=== PATIENT | female | born 1990 | race African-American/Black ===

== ENCOUNTER 2016-04-13 09:19 | Emergency (ER) | payer MEDICAID ==
[~2016-04-13] VITALS: Ht 160 cm; Wt 90.7 kg
[~2016-04-13 09:19] MED LIST: NORPTMEDS CO
[2016-04-13 09:36] VITALS: BP 110/72
[2016-04-13] MEDS ORDERED: cefTRIAXone SOD 1,000 MG VL IM ONE (10:15)
== END 2016-04-13 13:31 | disposition home or self-care (01) ==
LOC: EDBD 09:19 → ER 09:23
DX: J03.90 Acute tonsillitis, unspecified (principal)
CPT/HCPCS: 96372; 99283; J0696

== ENCOUNTER 2017-03-28 23:51 | Emergency (ER) | payer MEDICAID ==
[~2017-03-28] VITALS: Ht 162.6 cm; Wt 99.8 kg
[2017-03-29 00:12] VITALS: BP 135/88
[2017-03-29 00:29] LABS: Eosinophils # (auto) 0.1 uL; Eosinophils % (auto) 0.7 % (0.0-7.0); Hemoglobin 12.6 g/dL (12.2-16.2); Mean Corpuscular Volume 82.5 fL (80.0-100.0); Monocytes % (auto) 10.9 % (0.0-12.0); Nucleated Red Blood Cells % 0.1 %
[2017-03-29 00:30] LABS: Basophils # (auto) 0.1 uL; Basophils % (auto) 0.4 % (0.0-2.0); Hematocrit 38.6 % (36.0-46.0); Lymphocytes # (auto) 8.5 uL; Lymphocytes % (auto) 47.3 % (10.0-50.0); Mean Corpuscular Hgb Conc. 32.7 g/dL (32.0-36.0); Neutrophils # (auto) 7.4 uL; Neutrophils % (auto) 40.7 % (37.0-80.0); Platelet Count (auto) 323 10^3/uL (140-450); Red Blood Cells 4.67 10^6/uL (4.0-5.20); Red Cell Distribution Width 13.7 % (11.8-14.3); White Blood Cell 18.1 10^3/uL (4.4-10.8)
[2017-03-29 00:46] LABS: Alanine Aminotransferase 19 U/L (13-56); Albumin 3.4 g/dL (3.4-5.0); Anion Gap 8 (5-15); Aspartate Aminotransferase 11 U/L (15-37); BUN/Creatinine Ratio 9.4; Blood Alcohol < 3.0 mg/dL (0-5); Blood Urea Nitrogen 8 mg/dL (7-18); Calcium 8.3 mg/dL (8.5-10.1); Carbon Dioxide 23 mmol/L (21-32); Chloride 106 mmol/L (98-107); GFR African American 105 mL/min; GFR Non-African American 87 mL/min; Glucose 136 mg/dL (74-106); Magnesium 2.3 mg/dL (1.6-2.6); Sodium 137 mmol/L (136-145)
[2017-03-29 00:48] LABS: Alkaline Phosphatase 91 U/L (45-117); Bilirubin, Total 0.1 mg/dL (0.2-1.0); Total Protein 7.9 g/dL (6.4-8.2)
[2017-03-29 00:51] LABS: Potassium 2.7 mmol/L (3.5-5.1)
== END 2017-03-29 02:45 | disposition left against medical advice (07) ==
LOC: ER 23:51
DX: R11.2 Nausea with vomiting, unspecified (principal); Z53.21 Procedure and treatment not carried out due to patient leaving prior to being seen by health care provider
CPT/HCPCS: 36415; 80053; 80320; 83735; 84702; 85025

== ENCOUNTER 2019-02-21 08:55 | Emergency (ER) | payer MEDICAID ==
[~2019-02-21] VITALS: Ht 162.6 cm; Wt 108.9 kg
[2019-02-21 09:39] LABS: Urine Bacteria FEW /hpf (None Seen); Urine Blood Negative /uL (Negative); Urine Specific Gravity 1.023 (1.001-1.035); Urine WBC 1 /hpf (0 - 5)
[2019-02-21 09:40] LABS: Basophils # (auto) 0.1 uL; Basophils % (auto) 0.9 % (0.0-2.0); Eosinophils # (auto) 0.1 uL; Eosinophils % (auto) 0.8 % (0.0-7.0); Hematocrit 40.1 % (36.0-46.0); Hemoglobin 13.4 g/dL (12.2-16.2); Lymphocytes # (auto) 3.7 uL; Lymphocytes % (auto) 29.2 % (10.0-50.0); Mean Corpuscular Hemoglobin 27.4 pg (28.0-32.0); Mean Corpuscular Hgb Conc. 33.3 g/dL (32.0-36.0); Mean Corpuscular Volume 82.4 fL (80.0-100.0); Monocytes # (auto) 1.2 uL; Monocytes % (auto) 9.6 % (0.0-12.0); Neutrophils # (auto) 7.5 uL; Neutrophils % (auto) 59.5 % (37.0-80.0); Nucleated Red Blood Cells % 0.1 %; Platelet Count (auto) 281 10^3/uL (140-450); Red Blood Cells 4.87 10^6/uL (4.0-5.20); Red Cell Distribution Width 13.4 % (11.8-14.3); White Blood Cell 12.6 10^3/uL (4.4-10.8)
[2019-02-21 09:54] LABS: Albumin 3.4 g/dL (3.4-5.0); Calcium 8.1 mg/dL (8.5-10.1); Potassium 4.3 mmol/L (3.5-5.1)
[2019-02-21 09:59] LABS: BUN/Creatinine Ratio 13.8; Bilirubin, Total 0.2 mg/dL (0.2-1.0)
[2019-02-21] MEDS ORDERED: PANTOPRAZOLE 40 MG/10 ML VIAL INJ IV ONE (10:15)
[2019-02-21 10:39] VITALS: BP 112/72
== END 2019-02-21 11:33 | disposition home or self-care (01) ==
LOC: ER 08:55
DX: K29.70 Gastritis, unspecified, without bleeding (principal); D72.829 Elevated white blood cell count, unspecified
CPT/HCPCS: 36415; 74176; 80053; 81001; 81025; 85025; 96374; 99284; C9113

== ENCOUNTER 2019-04-23 14:56 | Emergency (ER) | payer MEDICAID ==
[~2019-04-23] VITALS: Ht 162.6 cm; Wt 116.1 kg
[2019-04-23 15:27] LABS: Basophils # (auto) 0.1 uL; Basophils % (auto) 0.6 % (0.0-2.0); Eosinophils # (auto) 0 uL; Eosinophils % (auto) 0.1 % (0.0-7.0); Hematocrit 43.6 % (36.0-46.0); Hemoglobin 14.5 g/dL (12.2-16.2); Lymphocytes # (auto) 2.1 uL; Lymphocytes % (auto) 17.1 % (10.0-50.0); Mean Corpuscular Hemoglobin 27.5 pg (28.0-32.0); Mean Corpuscular Hgb Conc. 33.4 g/dL (32.0-36.0); Mean Corpuscular Volume 82.4 fL (80.0-100.0); Monocytes # (auto) 0.8 uL; Monocytes % (auto) 6.2 % (0.0-12.0); Neutrophils # (auto) 9.4 uL; Platelet Count (auto) 311 10^3/uL (140-450); Red Blood Cells 5.29 10^6/uL (4.0-5.20); Red Cell Distribution Width 13.8 % (11.8-14.3); White Blood Cell 12.3 10^3/uL (4.4-10.8)
[2019-04-23] MEDS ORDERED: SODIUM CHLORIDE 0.9% 1,000 ML IVB ONE (15:28)
[2019-04-23 15:45] LABS: Salicylate < 1.7 mg/dL (2.8-20.0)
[2019-04-23] MEDS ORDERED: ONDANSETRON HCL 4 MG/2 ML VIAL IV ONE (15:45)
[2019-04-23 15:46] LABS: Alanine Aminotransferase 23 U/L (13-56); Anion Gap 7 (5-15); Aspartate Aminotransferase 16 U/L (15-37); BUN/Creatinine Ratio 10.8; Blood Alcohol < 3.0 mg/dL (0-5); Blood Urea Nitrogen 10 mg/dL (7-18); Carbon Dioxide 26 mmol/L (21-32); Chloride 103 mmol/L (98-107); GFR African American 93 mL/min; GFR Non-African American 77 mL/min; Glucose 104 mg/dL (74-106); Magnesium 2.3 mg/dL (1.6-2.6); Potassium 3.8 mmol/L (3.5-5.1); Sodium 136 mmol/L (136-145)
[2019-04-23] MEDS ORDERED: ONDANSETRON HCL 4 MG/2 ML VIAL ONE (15:47)
[2019-04-23 15:49] LABS: Alkaline Phosphatase 99 U/L (45-117); Bilirubin, Total 0.5 mg/dL (0.2-1.0); Total Protein 8.6 g/dL (6.4-8.2)
[2019-04-23 16:02] LABS: INR 1.02 (0.9-1.15); Partial Thromboplastin Time 25.9 sec (23.64-32.05)
[2019-04-23 16:05] LABS: Acetaminophen < 2.0 ug/mL (10-30)
[2019-04-23 16:20] LABS: Urine Bacteria NONE SEEN /hpf (None Seen); Urine Blood Negative /uL (Negative); Urine Mucus FEW (None Seen); Urine Specific Gravity 1.013 (1.001-1.035); Urine WBC 4 /hpf (0 - 5)
[2019-04-23 16:27] LABS: Alcohol, Urine < 3.0 mg/dL (0-5); Amphetamine Screen, Urine NEGATIVE (NEGATIVE); Barbiturate Scree,Urine NEGATIVE (NEGATIVE); Benzodiazephine Screen, Urine NEGATIVE (NEGATIVE); Cannabinoid Screen, Urine NEGATIVE (NEGATIVE); Cocaine Screen, Urine NEGATIVE (NEGATIVE); Opiate Scree,Urine NEGATIVE (NEGATIVE); Phencyclidine Screen, Urine NEGATIVE (NEGATIVE)
[2019-04-23 19:00] VITALS: BP 107/58
== END 2019-04-23 21:24 | disposition home or self-care (01) ==
LOC: ER 14:56
DX: T39.392A Poisoning by other nonsteroidal anti-inflammatory drugs [NSAID], intentional self-harm, initial encounter (principal); T42.4X2A Poisoning by benzodiazepines, intentional self-harm, initial encounter; T46.6X2A Poisoning by antihyperlipidemic and antiarteriosclerotic drugs, intentional self-harm, initial encounter; F41.9 Anxiety disorder, unspecified; F32.9 Major depressive disorder, single episode, unspecified; Y92.9 Unspecified place or not applicable
CPT/HCPCS: 36415; 71046; 80053; 80307; 80320; 80329; 81001; 83735; 84702; 85025; 85610; 85730; 93005; 96374; 99284; J2405; J7030

== ENCOUNTER 2019-08-19 12:17 | Emergency (ER) | payer MEDICAID ==
[~2019-08-19] VITALS: Ht 162.6 cm; Wt 121.1 kg
[2019-08-19] MEDS ORDERED: KETOROLAC TROMETH 60MG/2ML VIAL IM ONE (12:45)
[2019-08-19 13:13] LABS: Basophils # (auto) 0 10 ^3/uL (0-0.2); Basophils % (auto) 0.4 % (0.0-2.0); Eosinophils # (auto) 0.1 10 ^3/uL (0-0.8); Monocytes # (auto) 0.9 10 ^3/uL (0-1.3); Nucleated Red Blood Cells % 0.1 %
[2019-08-19 13:15] LABS: Eosinophils % (auto) 0.7 % (0.0-7.0); Hematocrit 40.2 % (36.0-46.0); Hemoglobin 13.3 g/dL (12.2-16.2); Lymphocytes # (auto) 3.5 10 ^3/uL (0.4-5.4); Lymphocytes % (auto) 33.9 % (10.0-50.0); Mean Corpuscular Hemoglobin 27.1 pg (28.0-32.0); Mean Corpuscular Volume 82.3 fL (80.0-100.0); Monocytes % (auto) 8.3 % (0.0-12.0); Neutrophils # (auto) 5.9 10 ^3/uL (1.6-8.6); Neutrophils % (auto) 56.7 % (37.0-80.0); Platelet Count (auto) 312 10^3/uL (140-450); Red Blood Cells 4.89 10^6/uL (4.0-5.20); Red Cell Distribution Width 13.6 % (11.8-14.3); White Blood Cell 10.4 10^3/uL (4.4-10.8)
[2019-08-19 13:29] LABS: Alanine Aminotransferase 20 U/L (13-56); Albumin 3.5 g/dL (3.4-5.0); Anion Gap 7 (5-15); Blood Urea Nitrogen 10 mg/dL (7-18); Calcium 8.8 mg/dL (8.5-10.1); Carbon Dioxide 25 mmol/L (21-32); Chloride 105 mmol/L (98-107); Glucose 91 mg/dL (74-106); Potassium 3.9 mmol/L (3.5-5.1); Sodium 137 mmol/L (136-145)
[2019-08-19 13:33] LABS: Alkaline Phosphatase 100 U/L (45-117); Aspartate Aminotransferase 13 U/L (15-37); BUN/Creatinine Ratio 14.9; Bilirubin, Total 0.3 mg/dL (0.2-1.0); GFR African American 136 mL/min; GFR Non-African American 112 mL/min; Total Protein 7.9 g/dL (6.4-8.2)
[2019-08-19 14:32] VITALS: BP 110/67
== END 2019-08-19 14:38 | disposition home or self-care (01) ==
LOC: ER 12:17
DX: R07.89 Other chest pain (principal); M94.0 Chondrocostal junction syndrome [Tietze]
CPT/HCPCS: 36415; 71046; 80053; 84484; 85025; 85379; 93005

== ENCOUNTER 2020-01-01 09:42 | Emergency (ER) | payer MEDICAID ==
[~2020-01-01] VITALS: Ht 162.6 cm; Wt 115.7 kg
[2020-01-01 09:54] VITALS: BP 145/77
== END 2020-01-01 10:36 | disposition home or self-care (01) ==
LOC: ER 09:42
DX: N94.6 Dysmenorrhea, unspecified (principal)

== ENCOUNTER 2020-11-26 17:31 | Emergency (ER) | payer MEDICAID ==
[~2020-11-26] VITALS: Ht 162.6 cm; Wt 122.5 kg
[2020-11-26 18:39] LABS: Eosinophils # (auto) 0.1 10 ^3/uL (0-0.8); Eosinophils % (auto) 0.6 % (0.0-7.0); Hemoglobin 12.8 g/dL (12.2-16.2)
[2020-11-26 18:42] LABS: Basophils # (auto) 0 10 ^3/uL (0-0.2); Basophils % (auto) 0.4 % (0.0-2.0); Hematocrit 38.5 % (36.0-46.0); Lymphocytes # (auto) 3.5 10 ^3/uL (0.4-5.4); Mean Corpuscular Hemoglobin 27.1 pg (28.0-32.0); Mean Corpuscular Hgb Conc. 33.2 g/dL (32.0-36.0); Mean Corpuscular Volume 81.6 fL (80.0-100.0); Monocytes # (auto) 0.9 10 ^3/uL (0-1.3); Monocytes % (auto) 8.2 % (0.0-12.0); Neutrophils # (auto) 6.5 10 ^3/uL (1.6-8.6); Neutrophils % (auto) 58.8 % (37.0-80.0); Nucleated Red Blood Cells % 0.1 %; Red Blood Cells 4.71 10^6/uL (4.0-5.20); Red Cell Distribution Width 13.6 % (11.8-14.3)
[2020-11-26 18:45] LABS: Albumin 3.4 g/dL (3.4-5.0); BUN/Creatinine Ratio 13.3; Calcium 8.8 mg/dL (8.5-10.1)
[2020-11-26 18:47] LABS: Bilirubin, Total 0.4 mg/dL (0.2-1.0); Total Protein 7.8 g/dL (6.4-8.2)
[2020-11-26 18:54] LABS: Urine Bacteria NONE SEEN /hpf (None Seen); Urine Blood 3+ /uL (Negative); Urine Mucus FEW (None Seen); Urine Specific Gravity 1.028 (1.001-1.035); Urine WBC 3 /hpf (0 - 5)
[2020-11-26 20:20] VITALS: BP 147/94
== END 2020-11-26 20:52 | disposition home or self-care (01) ==
LOC: ER 17:32
DX: N93.9 Abnormal uterine and vaginal bleeding, unspecified (principal)
CPT/HCPCS: 36415; 80053; 81001; 84702; 85025

== ENCOUNTER 2021-01-31 08:53 | Emergency (ER) | payer MEDICAID ==
[~2021-01-31] VITALS: Ht 162.6 cm; Wt 117.9 kg
[2021-01-31 09:45] LABS: Basophils # (auto) 0.1 10 ^3/uL (0-0.2); Basophils % (auto) 1.4 % (0.0-2.0); Eosinophils # (auto) 0.1 10 ^3/uL (0-0.8); Hemoglobin 13.1 g/dL (12.2-16.2); Lymphocytes % (auto) 29.9 % (10.0-50.0); Mean Corpuscular Hgb Conc. 32.7 g/dL (32.0-36.0); Mean Corpuscular Volume 82.6 fL (80.0-100.0); Monocytes # (auto) 0.8 10 ^3/uL (0-1.3); Monocytes % (auto) 8.4 % (0.0-12.0); Neutrophils # (auto) 5.9 10 ^3/uL (1.6-8.6); Neutrophils % (auto) 59.3 % (37.0-80.0); Red Blood Cells 4.85 10^6/uL (4.0-5.20); Red Cell Distribution Width 14.4 % (11.8-14.3)
[2021-01-31 10:01] LABS: Albumin 3.4 g/dL (3.4-5.0); Calcium 8.8 mg/dL (8.5-10.1)
[2021-01-31 10:03] LABS: BUN/Creatinine Ratio 8.6; Bilirubin, Total 0.2 mg/dL (0.2-1.0); Total Protein 7.2 g/dL (6.4-8.2)
[2021-01-31 10:46] LABS: Urine WBC None Seen /hpf (0 - 5)
[2021-01-31 11:21] VITALS: BP 110/68
[2021-01-31 11:21] LABS: Amphetamine Screen, Urine NEGATIVE (NEGATIVE); Barbiturate Scree,Urine NEGATIVE (NEGATIVE); Benzodiazephine Screen, Urine NEGATIVE (NEGATIVE); Cannabinoid Screen, Urine NEGATIVE (NEGATIVE); Cocaine Screen, Urine NEGATIVE (NEGATIVE); Opiate Scree,Urine NEGATIVE (NEGATIVE); Phencyclidine Screen, Urine NEGATIVE (NEGATIVE); Urine Bacteria FEW /hpf (None Seen); Urine Blood Negative /uL (Negative); Urine Specific Gravity 1.007 (1.001-1.035)
[2021-02-01 06:07] LABS: RPR Non Reactive (Non Reactive)
== END 2021-01-31 12:29 | disposition home or self-care (01) ==
LOC: ER 08:53
DX: O34.81 Maternal care for other abnormalities of pelvic organs, first trimester (principal); N83.202 Unspecified ovarian cyst, left side; Z3A.00 Weeks of gestation of pregnancy not specified
CPT/HCPCS: 36415; 76801; 76817; 80053; 80307; 81001; 81025; 84702; 85025; 86592

== ENCOUNTER 2021-02-04 20:05 | Emergency (ER) | payer MEDICAID ==
[~2021-02-04] VITALS: Ht 162.6 cm; Wt 120.2 kg
[2021-02-04 20:08] VITALS: BP 125/72
[2021-02-04 23:30] LABS: Albumin 3.2 g/dL (3.4-5.0); Calcium 8.8 mg/dL (8.5-10.1); Potassium 4.1 mmol/L (3.5-5.1)
[2021-02-04 23:34] LABS: Basophils # (auto) 0.1 10 ^3/uL (0-0.2); Basophils % (auto) 1.2 % (0.0-2.0); Eosinophils # (auto) 0.1 10 ^3/uL (0-0.8); Eosinophils % (auto) 1.1 % (0.0-7.0); Hematocrit 39.9 % (36.0-46.0); Hemoglobin 13.1 g/dL (12.2-16.2); Lymphocytes # (auto) 4.1 10 ^3/uL (0.4-5.4); Lymphocytes % (auto) 34.3 % (10.0-50.0); Mean Corpuscular Hemoglobin 27.2 pg (28.0-32.0); Mean Corpuscular Hgb Conc. 32.8 g/dL (32.0-36.0); Mean Corpuscular Volume 82.9 fL (80.0-100.0); Monocytes # (auto) 1.2 10 ^3/uL (0-1.3); Monocytes % (auto) 9.8 % (0.0-12.0); Neutrophils # (auto) 6.4 10 ^3/uL (1.6-8.6); Neutrophils % (auto) 53.6 % (37.0-80.0); Red Blood Cells 4.81 10^6/uL (4.0-5.20); Red Cell Distribution Width 14.3 % (11.8-14.3)
[2021-02-04 23:35] LABS: BUN/Creatinine Ratio 17.7; Bilirubin, Total 0.2 mg/dL (0.2-1.0); Total Protein 7.6 g/dL (6.4-8.2)
[2021-02-04 23:44] LABS: INR 0.94 (0.9-1.15)
== END 2021-02-05 00:40 | disposition left against medical advice (07) ==
LOC: ER 20:06
DX: O20.0 Threatened abortion (principal); Z3A.01 Less than 8 weeks gestation of pregnancy
CPT/HCPCS: 36415; 80053; 84702; 85025; 85610

== ENCOUNTER 2021-05-21 20:32 | Observation (INO) | payer MEDICAID ==
[~2021-05-21] VITALS: Ht 162.6 cm; Wt 127.0 kg
[2021-05-21 20:33] VITALS: BP 144/70
[2021-05-21] MEDS ORDERED: SODIUM CHLORIDE 0.9% 1,000 ML IV ONE (21:00)
[2021-05-21] MEDS ORDERED: MAGNESIUM SULFATE 1GM/100ML 100 ML IV SCH (21:00)
[2021-05-21] MEDS ORDERED: SODIUM CHLORIDE 0.9% 500 ML IV ONE (21:00)
[2021-05-21 21:19] LABS: Urine Bacteria NONE SEEN /hpf (None Seen); Urine Blood Negative /uL (Negative); Urine Specific Gravity 1.019 (1.001-1.035); Urine WBC 1 /hpf (0 - 5)
[2021-05-21] MEDS ORDERED: ONDANSETRON HCL 4 MG/2 ML VIAL IV PRN (22:00)
[2021-05-21] MEDS ORDERED: LACTATED RINGER'S 1,000 ML IV ONE ×2 (22:00)
[2021-05-21 22:37] LABS: Alcohol, Urine < 3.0 mg/dL (0-10); Amphetamine Screen, Urine NEGATIVE (NEGATIVE); Barbiturate Scree,Urine NEGATIVE (NEGATIVE); Benzodiazephine Screen, Urine NEGATIVE (NEGATIVE); Cannabinoid Screen, Urine NEGATIVE (NEGATIVE); Cocaine Screen, Urine NEGATIVE (NEGATIVE); Opiate Scree,Urine NEGATIVE (NEGATIVE); Phencyclidine Screen, Urine NEGATIVE (NEGATIVE)
[2021-05-21] MEDS ORDERED: PREN-96 PO (23:36)
== END 2021-05-22 00:23 | disposition home or self-care (01) ==
LOC: ER 20:33 → LDRP 21:15
PROVIDERS: ADMIT Obstetrics & Gynecology; ATTEND Obstetrics & Gynecology
DX: O21.2 Late vomiting of pregnancy (principal); Z20.822 Contact with and (suspected) exposure to COVID-19; O26.892 Other specified pregnancy related conditions, second trimester; R10.9 Unspecified abdominal pain; R42 Dizziness and giddiness; E86.0 Dehydration; N89.8 Other specified noninflammatory disorders of vagina; Z3A.22 22 weeks gestation of pregnancy; Z79.899 Other long term (current) drug therapy
CPT/HCPCS: 36415; 59025; 80307; 81001; 87086; 87426; 93005; 96361; 96374; 99284; G0378; J2405; J3475; 96360

== ENCOUNTER 2021-06-16 15:47 | Observation (INO) | payer MEDICAID ==
[~2021-06-16 15:47] MED LIST changes: +PREN-96 PO
== END 2021-06-16 17:06 | disposition home or self-care (01) ==
LOC: LDRP 15:47
PROVIDERS: ADMIT Obstetrics & Gynecology; ATTEND Obstetrics & Gynecology
DX: O26.892 Other specified pregnancy related conditions, second trimester (principal); R10.2 Pelvic and perineal pain; Z3A.25 25 weeks gestation of pregnancy
CPT/HCPCS: 59025; 81002; 94760; G0378

== ENCOUNTER 2021-09-05 08:50 | Observation (INO) | payer MEDICAID ==
[~2021-09-05] VITALS: Ht 162.6 cm; Wt 135.2 kg
[2021-09-05] MEDS ORDERED: ASPI-543 PO (09:20)
[2021-09-05 11:07] LABS: Urine Bacteria NONE SEEN /hpf (None Seen); Urine Blood Negative /uL (Negative); Urine Specific Gravity 1.017 (1.001-1.035); Urine WBC <1 /hpf (0 - 5)
== END 2021-09-05 14:30 | disposition home or self-care (01) ==
LOC: UNDOADMOB 08:50 → LDRP 08:50 → UNDODISOB 14:30
PROVIDERS: ADMIT Obstetrics & Gynecology Obstetrics; ATTEND Obstetrics & Gynecology Obstetrics
DX: O62.9 Abnormality of forces of labor, unspecified (principal); O26.893 Other specified pregnancy related conditions, third trimester; I44.0 Atrioventricular block, first degree; E86.0 Dehydration; O23.43 Unspecified infection of urinary tract in pregnancy, third trimester; Z3A.37 37 weeks gestation of pregnancy
CPT/HCPCS: 59025; 76818; 81001; 81002; 82948; 82962; 87210; 94760; G0378

== ENCOUNTER 2021-09-09 09:45 | Observation (INO) | payer OTHER ==
[~2021-09-09 09:45] MED LIST changes: +ASPI-543 PO
== END 2021-09-09 11:14 | disposition home or self-care (01) ==
LOC: UNDOADMOB 09:45 → LDRP 09:45
PROVIDERS: ADMIT Obstetrics & Gynecology; ATTEND Obstetrics & Gynecology
DX: O36.8130 Decreased fetal movements, third trimester, not applicable or unspecified (principal); O12.03 Gestational edema, third trimester; Z3A.37 37 weeks gestation of pregnancy
CPT/HCPCS: 59025; 81002; 94760; G0378

== ENCOUNTER 2021-09-20 20:15 | Emergency (ER) | payer MEDICAID, OTHER ==
[~2021-09-20] VITALS: Ht 162.6 cm; Wt 127.0 kg
[~2021-09-20 20:15] MED LIST changes: -NORPTMEDS CO
[2021-09-20 20:42] VITALS: BP 126/76
[2021-09-20] MEDS ORDERED: SODIUM CHLORIDE 0.9% 1,000 ML IV ONE (21:15)
[2021-09-20] MEDS ORDERED: MORPHINE SULFATE 4 MG/ML SYR/VIAL IV ONE (21:15)
[2021-09-20] MEDS ORDERED: ONDANSETRON HCL 4 MG/2 ML VIAL IV ONE (21:15)
[2021-09-20 22:14] LABS: Basophils # (auto) 0.1 10 ^3/uL (0-0.2); Basophils % (auto) 0.5 % (0.0-2.0); Eosinophils # (auto) 0.1 10 ^3/uL (0-0.8); Eosinophils % (auto) 1.2 % (0.0-7.0); Hematocrit 37.7 % (36.0-46.0); Hemoglobin 11.9 g/dL (12.2-16.2); Lymphocytes # (auto) 2.6 10 ^3/uL (0.4-5.4); Mean Corpuscular Hgb Conc. 31.7 g/dL (32.0-36.0); Monocytes % (auto) 9.2 % (0.0-12.0); Neutrophils # (auto) 7.4 10 ^3/uL (1.6-8.6); Neutrophils % (auto) 66.1 % (37.0-80.0); Red Blood Cells 4.59 10^6/uL (4.0-5.20); Red Cell Distribution Width 15.2 % (11.8-14.3); White Blood Cell 11.2 10^3/uL (4.4-10.8)
[2021-09-20 22:35] LABS: Albumin 2.9 g/dL (3.4-5.0); BUN/Creatinine Ratio 10.6; Calcium 8.8 mg/dL (8.5-10.1); Potassium 3.8 mmol/L (3.5-5.1)
[2021-09-20 22:37] LABS: Bilirubin, Total 0.3 mg/dL (0.2-1.0); Total Protein 6.8 g/dL (6.4-8.2)
== END 2021-09-21 01:19 | disposition left against medical advice (07) ==
LOC: ER 20:15
DX: R10.32 Left lower quadrant pain (principal); Z88.8 Allergy status to other drugs, medicaments and biological substances
CPT/HCPCS: 36415; 80053; 84702; 85025

== ENCOUNTER 2023-11-03 15:59 | Emergency (ER) | payer BC, MEDICAID ==
[~2023-11-03] VITALS: Ht 162.6 cm; Wt 113.6 kg
[2023-11-03 17:09] LABS: Basophils # (auto) 0.1 10 ^3/uL (0-0.2); Basophils % (auto) 0.6 % (0.0-2.0); Eosinophils # (auto) 0.2 10 ^3/uL (0-0.8); Hematocrit 42.9 % (36.0-46.0); Hemoglobin 13.9 g/dL (12.2-16.2); Monocytes # (auto) 1.1 10 ^3/uL (0-1.3)
[2023-11-03 17:11] LABS: Eosinophils % (auto) 1.1 % (0.0-7.0); Lymphocytes # (auto) 2.6 10 ^3/uL (0.4-5.4); Lymphocytes % (auto) 16.7 % (10.0-50.0); Mean Corpuscular Hemoglobin 26.9 pg (28.0-32.0); Mean Corpuscular Hgb Conc. 32.5 g/dL (32.0-36.0); Mean Corpuscular Volume 82.9 fL (80.0-100.0); Monocytes % (auto) 6.8 % (0.0-12.0); Neutrophils # (auto) 11.7 10 ^3/uL (1.6-8.6); Neutrophils % (auto) 74.8 % (37.0-80.0); Red Blood Cells 5.18 10^6/uL (4.0-5.20); Red Cell Distribution Width 13.7 % (11.8-14.3); White Blood Cell 15.6 10^3/uL (4.4-10.8)
[2023-11-03 17:19] LABS: Alanine Aminotransferase 13 U/L (7-40); Albumin 4.2 g/dL (3.2-4.8); Alkaline Phosphatase 98 U/L (46-116); Anion Gap 2 (5-15); Aspartate Aminotransferase 12 U/L (13-40); Blood Urea Nitrogen 6 mg/dL (9-23); Calcium 9.4 mg/dL (8.7-10.4); Carbon Dioxide 26 mmol/L (20-30); Chloride 111 mmol/L (98-107); Glucose 89 mg/dL (74-106); Sodium 139 mmol/L (136-145)
[2023-11-03 17:20] LABS: Bilirubin, Total 0.3 mg/dL (0.2-1.0); Total Protein 7.7 g/dL (5.7-8.2)
[2023-11-03] MEDS: KETOROLAC TROMETH 60MG/2ML VIAL IM ONE (17:20)
[2023-11-03] MEDS ORDERED: AZIT-185 PO (21:48)
[2023-11-04 00:25] VITALS: BP 115/74; PULSE 89; RESP 19; TEMP 98.1; O2SAT 100
[2023-11-04] MEDS ORDERED: IOHEXOL 350 MG/ML 100ML IJ ONE (05:44)
== END 2023-11-04 00:26 | disposition home or self-care (01) ==
LOC: ER 15:59
DX: U07.1 COVID-19 (principal); R10.2 Pelvic and perineal pain; R06.02 Shortness of breath; R51.9 Headache, unspecified; Z88.6 Allergy status to analgesic agent
CPT/HCPCS: 36415; 71275; 80053; 84484; 84702; 85025; 85379; 93005; 96372; 99285; J1885; Q9967

== ENCOUNTER 2023-12-04 20:30 | Emergency (ER) | payer BC, MEDICAID ==
[~2023-12-04] VITALS: Ht 162.6 cm; Wt 134.0 kg
[~2023-12-04 20:30] MED LIST changes: +AZIT-185 PO
[2023-12-04 21:10] VITALS: BP 129/66; PULSE 81; RESP 18; TEMP 98.3; O2SAT 97
[2023-12-04] MEDS ORDERED: ACET500T58 PO (22:21)
== END 2023-12-04 23:03 | disposition home or self-care (01) ==
LOC: ER 20:30
DX: G44.209 Tension-type headache, unspecified, not intractable (principal); H11.32 Conjunctival hemorrhage, left eye; F41.9 Anxiety disorder, unspecified; F32.A Depression, unspecified
CPT/HCPCS: 70450

== ENCOUNTER 2025-02-08 22:17 | Emergency (ER) | payer OTHER, MEDICAID ==
[~2025-02-08] VITALS: Ht 162.6 cm; Wt 109.3 kg
[~2025-02-08 22:17] MED LIST changes: +ACET500T58 PO
[2025-02-08 22:45] LABS: Hematocrit 37.6 % (36.0-46.0); Hemoglobin 12.2 g/dL (12.2-16.2); Mean Corpuscular Hemoglobin 27.1 pg (28.0-32.0); Mean Corpuscular Volume 83.6 fL (80.0-100.0); Nucleated Red Blood Cells % 0.0 %
--- NOTE | 2025-02-08 22:48 | ED.PDOC ---
History of Present Illness HPI Comments 34 y/o obese F is BIBA for c/c of left sided chest pain. Patient reports on having squeezing, pressure-like pain, intermittently, all day, today, that worsened within the past hour prior to ED arrival. Pain is an 8/10 in severity and radiates to her left arm. Associated shortness of breath, lightheadedness, dizziness, and left arm numbness and tightness sensation endorsed. Denies any nausea, vomiting, fever, chills, or further acute symptoms. Pertinent history of type I heart block diagnosis following previous chest pain episode onset in the past with syncope. Family history of heart disease, cancer, DM, and HTN. Chief Complaint: Chest Pain Time Seen by MD: 22:20 Primary Care Provider: UNKNOWN Reviewed Notes: Nurses Notes, Hydraulic Plumber Notes, Medications, Allergies Allergies: Coded Allergies: Miconazole (Verified Allergy, Unknown, RASH, 09/09/21) Home Meds Active Scripts Acetaminophen (Acetaminophen) 500 Mg Tab, 500 MG PO Q4HPRN, #30 TAB 0 Refills Prov:KATHRINE CUELLAR 12/04/23 Azithromycin (ZITHROMAX TABLET) 250 Mg Tb, 250 MG PO qdaily for 5 Days, #6 TAB Take 2 tablets on day 1 and 1 tablet on days 2-4 by mouth Prov:HOWARD GONSALEZ MD 11/03/23 Reported Medications Aspirin (Aspir-Low) 81 Mg Tab, 81 MG PO DAILY for 30 Days, MG 09/05/21 Vit W/ Ferrous Fumara ( One Daily) Daily Tab, 1 TAB PO DAILY, #90 TAB 3 Refills 05/21/21 Information Source: Patient, Emergency Med Personnel Mode of Arrival: EMS Severity: Moderate Timing: Hours Duration: Intermittent Prehospital treatment: 12 Lead EKG, Bus Info Consultant Past Medical History PAST MEDICAL HISTORY: Anxiety, Depression Past Medical History (Other): type I heart block COMPUTER GRAPHIC ARTIST History: Other (IUD) Family History Family History: Family hx of DM, Family hx of Cancer, Family hx of heart gonzalo, Family hx of HTN Social History Smoker: Non-Smoker Alcohol: Denies ETOH Use Drugs: Denies Drug Use Lives In: Home Constitutional: denies: chills, diaphoresis, fatigue, fever, malaise, sweats, weakness, others EENTM: denies: blurred vision, double vision, ear bleeding, ear discharge, ear drainage, ear pain, ear ringing, eye pain, eye redness, hearing loss, mouth pain, mouth swelling, nasal discharge, nose bleeding, nose congestion, nose pain, photophobia, tearing, throat pain, throat swelling, voice changes, others Respiratory: reports: shortness of breath; denies: cough, hemoptysis, orthopnea, SOB at rest, SOB with excertion, stridor, wheezing, others Cardiovascular: reports: chest pain, dizzy spells, left arm pain, lightheadedness; denies: diaphoresis, Dyspnea on exertion, edema, irregular heart beat, palpitations, PND, syncope, others Gastrointestinal: denies: abdomen distended, abdominal pain, blood streaked bowels, constipated, diarrhea, dysphagia, difficulty swallowing, hematemesis, melena, nausea, poor appetite, poor fluid intake, rectal bleeding, rectal pain, vomiting, others Genitourinary: denies: abnormal vagina bleeding, burning, dyspareunia, dysuria, flank pain, frequency, hematuria, incontinence, pain, , vagina discharge, urgency, others Neurological: denies: dizziness, fainting, headache, left sided numbness, left sided weakness, numbness, paresthesia, pre-existing deficit, right sided numbne ss, right sided weakness, seizure, speech problems, tingling, tremors, weakness, others Musculoskeletal: denies: back pain, gout, joint pain, joint swelling, muscle pain, muscle stiffness, neck pain, others Integumetry: denies: bruises, change in color, change in hair/nails, dryness, laceration, lesions, lumps, rash, wounds, others Allergic/Immunocompromised: denies: Difficulty Healing, Frequent Infections, Hives, Itching, others Hematologic/Lymphatic: denies: anemia, blood clots, easy bleeding, easy bruising, swollen glands, others Endocrine: denies: excessive hunger, excessive sweating, excessive thirst, excessive urination, flushing, intolerance to cold, intolerance to heat, unexplained weight gain, unexplained weight loss, others Psychiatric: denies: anxiety, bipolar disorder, depression, hopeless, panic disorder, schizophrenia, sleepless, suicidal, others All Other Systems: Reviewed and Negative Physical Exam General Appearance: Mild Distress, Obese HEENT: Normal ENT Inspection, Pharynx Normal, TMs Normal Neck: Full Range of Motion, Non-Tender, Normal, Normal Inspection Respiratory: Chest Non-Tender, Lungs Clear, No Accessory Muscle Use, No Respiratory Distress, Normal Breath Sounds Cardiovascular: No Edema, No JVD, No Murmur, No Gallop, Tachycardia Breast Exam: Deferred Gastrointestinal: No Organomegaly, Non Tender, No Pulsatile Mass, Normal Bowel Sounds, Soft Genitalia: Deferred Pelvic: Deferred Rectal: Deferred Extremities: No calf tenderness, Normal capillary refill, Normal inspection, Normal range of motion, Non-tender, No pedal edema Musculoskeletal : Apperance: Normal Neurologic: Alert, podiatrist II-XII nml as Tested, No Motor Deficits, Normal Affect, Normal Mood, No Sensory Deficits Cerebellar Function: Normal Reflexes: Normal Skin: Dry, Normal Color, Warm Lymphatic: No Adenopathy Was a procedure done? Was a procedure done?: No EKG EKG : Pulse Rate (adult): 107 [place]: Normal Cardiac Rhythm: ST Block: None Hypertrophy: None ST: Normal Differential Dx Considerations may include: OR, PE, ACS, CAD, URI, heart block, angina, anxiety, gastritis, gastroenteritis, among others X-Ray, Labs, Meds, VS Vital Signs Date Time Temp Pulse Resp B/P (MAP) Pulse Ox O2 Delivery O2 Flow Rate FiO2 02/08/25 22:48 107 02/08/25 22:28 98.7 110 18 111/72 100 98.7 02/08/25 22:24 107 Lab Test 02/08/25 23:15 02/08/25 22:23 Range/Units Troponin I High Sensitivity Pending < 3 L </=34 ng/L White Blood Count 13.4 H 4.4-10.8 10^3/uL Red Blood Count 4.50 4.0-5.20 10^6/uL Hemoglobin 12.2 12.2-16.2 g/dL Hematocrit 37.6 36.0-46.0 % Mean Corpuscular Volume 83.6 80.0-100.0 fL Mean Corpuscular Hemoglobin 27.1 L 28.0-32.0 pg Mean Corpuscular Hemoglobin Concent 32.4 32.0-36.0 g/dL Red Cell Distribution Width 13.5 11.8-14.3 % Platelet Count 341 140-450 10^3/uL Mean Platelet Volume 8.4 6.9-10.8 fL Neutrophils (%) (Auto) 58.0 37.0-80.0 % Lymphocytes (%) (Auto) 31.9 10.0-50.0 % Monocytes (%) (Auto) 8.4 0.0-12.0 % Eosinophils (%) (Auto) 1.0 0.0-7.0 % Basophils (%) (Auto) 0.7 0.0-2.0 % Neutrophils # (Auto) 7.7 1.6-8.6 10 ^3/uL Lymphocytes # (Auto) 4.3 0.4-5.4 10 ^3/uL Monocytes # (Auto) 1.1 0-1.3 10 ^3/uL Eosinophils # (Auto) 0.1 0-0.8 10 ^3/uL Basophils # (Auto) 0.1 0-0.2 10 ^3/uL Nucleated Red Blood Cells 0.0 % D-Dimer, Quantitative 0.54 H 0.0-0.49 mg/L FEU Sodium Level 140 136-145 mmol/L Potassium Level 4.9 3.5-5.1 mmol/L Chloride Level 105 98-107 mmol/L Carbon Dioxide Level 26 20-31 mmol/L Anion Gap 9 5-15 Blood Urea Nitrogen 11 9-23 mg/dL Creatinine 0.96 0.550-1.02 mg/dL Glomerular Filtration Rate Calc 81 >90 mL/min BUN/Creatinine Ratio 11.5 10.0-20.0 Serum Glucose 79 74-106 mg/dL Calcium Level 8.9 8.7-10.4 mg/dL The chest x-ray is negative The CBC shows an elevated white blood cell count of 13.4 The D-dimer is 0.54 The chemistry panel is within normal limits At this time, the patient is being discharged The patient's troponin level is negative The patient's heart rate has now come down. The patient is no longer symptomatic The patient is being discharged and will follow up with the primary care doctor Images Reviewed?: Images reviewed and evaluated by me Time of 1ST Reevaluation: 22:50 Reevaluation 1ST: Unchanged Patient Education/Counseling: Diagnosis, Treatment, Prognosis, Need For Follow Up Family Education/Counseling: No Family Present SEPSIS Sepsis Screen Physician Orders Chest Portable (02/08/25 22:23) Heplock Iv (02/08/25 22:23) Electrocardigram (02/08/25 22:23) Troponin-I Hs (02/08/25 23:23) Troponin-I Hs (02/09/25 01:23) Electrocardigram (02/08/25 23:23) Electrocardigram (02/09/25 01:23) Ct Angio Chest Contrast (02/08/25 23:44) Vital Signs Date Time Temp Pulse Resp B/P (MAP) Pulse Ox O2 Delivery O2 Flow Rate FiO2 02/08/25 22:48 107 02/08/25 22:28 98.7 110 18 111/72 100 98.7 02/08/25 22:24 107 Laboratory Tests Test 02/08/25 22:23 White Blood Count 13.4 10^3/uL (4.4-10.8) H Departure 1 Departure Time of Disposition: 23:56 Impression: Primary Impression: Atypical chest pain Disposition: HOME / SELF CARE / HOMELESS Condition: Fair Discharged With: Self Critical Care Note Critical Care Time?: No Stability Stability form required: No Heart Score Heart Score: Heart Score Response (Comments) Value History Moderate Suspicious 1 EKG Normal 0 Age <45 0 Risk Factors 1 or 2 risk factors 1 Troponin N/A 0 Total 2 I personally scribed for LINN LANDRY MD ([email or web address]) on 02/08/25 at 22:48. Electronically submitted by Huseyin Herbert [email or web address]). LINN LANDRY MD Feb 08, 2025 22:48
[2025-02-08 22:59] LABS: Chloride 105 mmol/L (98-107); Sodium 140 mmol/L (136-145)
[2025-02-08 23:00] LABS: Anion Gap 9 (5-15); Calcium 8.9 mg/dL (8.7-10.4); Carbon Dioxide 26 mmol/L (20-31)
[2025-02-08 23:02] LABS: Potassium 4.9 mmol/L (3.5-5.1)
[2025-02-08 23:05] LABS: Glucose 79 mg/dL (74-106)
[2025-02-08 23:23] LABS: BUN/Creatinine Ratio 11.5 (10.0-20.0)
[2025-02-08 23:24] LABS: Blood Urea Nitrogen 11 mg/dL (9-23)
--- NOTE | 2025-02-08 23:41 | DVH ---
CHEST RADIOGRAPH Indication: CP Technique: Single frontal view of the chest was obtained COMPARISON: CT CT ANGIO CHEST CONTRAST on DOS: 11/03/23, CHEST TWO VIEWS ROUTINE on DOS: 08/19/19, CHEST TWO VIEWS ROUTINE on DOS: 04/23/19 FINDINGS: Lines and Tubes: None Lungs: Clear Pleura: No effusion. No pneumothorax. Cardiomediastinal contours: Unremarkable Bones: Unremarkable IMPRESSION: 1. No acute disease.
[2025-02-08] MEDS: IOHEXOL 350 MG/ML 100ML IJ ONE (23:53)
[2025-02-09 00:45] VITALS: BP 123/60; PULSE 83; RESP 17; TEMP 98.3; O2SAT 100
--- NOTE | 2025-02-09 15:24 | ECG ---
[facility] Test Date: 2025-02-08 Test Time: 22:24:21 Pat Name: CHASITY MANLEY Department: ED Room: Gender: F Exceptional Student Education Teacher: : 1990 Requested By: LINN LANDRY Order Number: [id number] Reading MD: Tj Ziegler Measurements Intervals [place] Rate: 107 P: 57 TX: 165 QRS: 83 QRSD: 86 T: 16 QT: 325 QTc: 434 Interpretive Statements Sinus tachycardia Electronically Signed On 02-11-2025 17:44:53 PST by Tj Ziegler Please click the below link to view image of tracing.
--- NOTE | 2025-02-09 15:25 | ECG ---
[facility] Test Date: 2025-02-08 Test Time: 23:51:25 Pat Name: CHASITY MANLEY Department: ED Room: Gender: F Water Project Manager: : 1990 Requested By: LINN LANDRY Order Number: [id number] Reading MD: Tj Ziegler Measurements Intervals [place] Rate: 83 P: 66 AL: 210 QRS: 80 QRSD: 88 T: 40 QT: 365 QTc: 429 Interpretive Statements Sinus rhythm Borderline prolonged AL interval Electronically Signed On 02-11-2025 17:45:16 PST by Tj Ziegler Please click the below link to view image of tracing.
== END 2025-02-09 00:46 | disposition home or self-care (01) ==
LOC: ER 22:17 → EDBD 22:17 → ER 02-09 00:46
DX: R07.89 Other chest pain (principal); F41.9 Anxiety disorder, unspecified; F32.A Depression, unspecified; Z79.899 Other long term (current) drug therapy
CPT/HCPCS: 36415; 71045; 80048; 84484; 85025; 85379; 93005; 99285; Q9967

== ENCOUNTER 2025-03-04 18:54 | Emergency (ER) | payer OTHER, MEDICAID ==
[~2025-03-04] VITALS: Ht 162.6 cm; Wt 108.2 kg
--- NOTE | 2025-03-04 19:15 | ECG ---
[facility] Test Date: 2025-03-04 Test Time: 19:05:36 Pat Name: CHASITY MANLEY Department: Room: Gender: F Paraprofessional Education Assistant: MAL : 1990 Requested By: MELANIE AYALA* Order Number: [id number] Reading MD: Tj Ziegler Measurements Intervals [place] Rate: 107 P: 83 IA: 131 QRS: 90 QRSD: 82 T: 7 QT: 311 QTc: 415 Interpretive Statements Sinus tachycardia Borderline right axis deviation Borderline T wave abnormalities Electronically Signed On 03-05-2025 17:26:24 PST by Tj Ziegler Please click the below link to view image of tracing.
[2025-03-04] MEDS ORDERED: PROM1SOL4 PO (21:24)
[2025-03-04] MEDS ORDERED: IBUP-1455 PO (21:24)
--- NOTE | 2025-03-04 21:24 | ED.PDOC ---
History of Present Illness HPI Comments A 35-year-old female stating she has been having cough congestion generalized weakness for the last three days. Says she has been dealing with a chills. This morning she felt nauseous tried to throw up, nothing came up and patient states she had a syncopal episode. Went to the urgent care today and was advi sed she needs to go to the emergency department because she had passed out. Patient states she feels as though she has a flu. She had call out of work. Requesting work note. Chief Complaint: Syncope Time Seen by MD: 19:09 Primary Care Provider: UNKNOWN Reviewed Notes: Nurses Notes Allergies: Coded Allergies: Miconazole (Verified Allergy, Unknown, RASH, 09/09/21) Home Meds Active Scripts Acetaminophen (Acetaminophen) 500 Mg Tab, 500 MG PO Q4HPRN, #30 TAB 0 Refills Prov:KATHRINE CUELLAR 12/04/23 Azithromycin (ZITHROMAX TABLET) 250 Mg Tb, 250 MG PO qdaily for 5 Days, #6 TAB Take 2 tablets on day 1 and 1 tablet on days 2-4 by mouth Prov:HOWARD GONSALEZ MD 11/03/23 Reported Medications Aspirin (Aspir-Low) 81 Mg Tab, 81 MG PO DAILY for 30 Days, MG 09/05/21 Vit W/ Ferrous Fumara ( One Daily) Daily Tab, 1 TAB PO DAILY, #90 TAB 3 Refills 05/21/21 Information Source: Patient Mode of Arrival: Ambulatory Past Medical History PAST MEDICAL HISTORY: Anxiety, Depression SCIENCE CONSULTANT History: Other Family History Family History: Family hx of DM, Family hx of Cancer, Family hx of heart gonzalo, Family hx of HTN Social History Smoker: Non-Smoker Alcohol: Denies ETOH Use Drugs: Denies Drug Use Lives In: Home Constitutional: reports: chills; denies: diaphoresis, fatigue, fever, malaise, sweats, weakness, others EENTM: denies: blurred vision, double vision, ear bleeding, ear discharge, ear drainage, ear pain, ear ringing, eye pain, eye redness, hearing loss, mouth pain, mouth swelling, nasal discharge, nose bleeding, nose congestion, nose pain, photophobia, tearing, throat pain, throat swelling, voice changes, others Respiratory: reports: cough; denies: hemoptysis, orthopnea, SOB at rest, shortness of breath, SOB with excertion, stridor, wheezing, others Cardiovascular: reports: syncope; denies: chest pain, dizzy spells, diaphoresis, Dyspnea on exertion, edema, irregular heart beat, left arm pain, lightheadedness, palpitations, PND, others Gastrointestinal: reports: nausea; denies: abdomen distended, abdominal pain, blood streaked bowels, constipated, diarrhea, dysphagia, difficulty swallowing, hematemesis, melena, poor appetite, poor fluid intake, rectal bleeding, rectal pain, vomiting, others Genitourinary: denies: abnormal vagina bleeding, burning, dyspareunia, dysuria, flank pain, frequency, hematuria, incontinence, pain, , vagina discharge, urgency, others Neurological: denies: dizziness, fainting, headache, left sided numbness, left sided weakness, numbness, paresthesia, pre-existing deficit, right sided numbness, right sided weakness, seizure, speech problems, tingling, tremors, weakness, others Musculoskeletal: denies: back pain, gout, joint pain, joint swelling, muscle pain, muscle stiffness, neck pain, others Integumetry: denies: bruises, change in color, change in hair/nails, dryness, laceration, lesions, lumps, rash, wounds, others Allergic/Immunocompromised: denies: Difficulty Healing, Frequent Infections, Hives, Itching, others Physical Exam General Appearance: No Apparent Distress, Normal HEENT: Normal ENT Inspection, Pharynx Normal, TMs Normal Neck: Full Range of Motion, Non-Tender, Normal, Normal Inspection Respiratory: Chest Non-Tender, Lungs Clear, No Accessory Muscle Use, No Respiratory Distress, Normal Breath Sounds Cardiovascular: No Edema, No JVD, No Murmur, No Gallop, Normal Peripheral Pulses, Regular Rate/Rhythm Breast Exam: Deferred Gastrointestinal: No Organomegaly, Non Tender, No Pulsatile Mass, Normal Bowel Sounds, Soft Genitalia: Deferred Pelvic: Deferred Rectal: Deferred Extremities: No calf tenderness, Normal capillary refill, Normal inspection, Normal range of motion, Non-tender, No pedal edema Musculoskeletal : Apperance: Normal Neurologic: Alert, esl instructor II-XII nml as Tested, No Motor Deficits, Normal Affect, Normal Mood, No Sensory Deficits Cerebellar Function: Normal Reflexes: Normal Skin: Dry, Normal Color, Warm Lymphatic: No Adenopathy Was a procedure done? Was a procedure done?: No Differential Dx Considerations may include: Dizziness, influenza, COVID-19, syncopal episode X-Ray, Labs, Meds, VS Vital Signs Date Time Temp Pulse Resp B/P (MAP) Pulse Ox O2 Delivery O2 Flow Rate FiO2 03/04/25 19:05 107 03/04/25 18:56 97.8 98 18 111/73 95 97.8 Lab Test 03/04/25 20:36 Range/Units Influenza Type A Antigen Pending Influenza Type B Antigen Pending SARS-CoV-2 Antigen (Rapid) Pending X-Ray, Labs, Meds, VS Comment Imaging was reviewed by this provider, there is no obvious pathological or acute disease process. Pending radiology review Labs were reviewed by this provider, no abnormalities Vital signs reviewed by this provider, clinically stable Time of 1ST Reevaluation: 21:24 Reevaluation 1ST: Unchanged Patient Education/Counseling: Diagnosis, Treatment, Need For Follow Up (Follow up with PCP next available appointment. Return to emergency department if symptoms worsen.) Family Education/Counseling: Diagnosis SEPSIS Sepsis Screen Date sepsis recognized/suspect: Mar 04, 2025 Time Sepsis recognized/suspect: 1858 Recent Procedure: No On Antibiotic Therapy: No Respiratory Rate >20: No Heart Rate >90: Yes Temp<36 C (96.8 F) or >38.3 C: No SBP <90 or MAP <65 mmHG: No New Acute Mental Status Change: No Is the patient on CPAP, BIPAP,: No Physician Orders Covid19 Antigen Yessenia (03/04/25 ) Rapid Influenza A&B (03/04/25 19:29) Vital Signs Date Time Temp Pulse Resp B/P (MAP) Pulse Ox O2 Delivery O2 Flow Rate FiO2 03/04/25 19:05 107 03/04/25 18:56 97.8 98 18 111/73 95 97.8 Departure 1 Departure Time of Disposition: 21:22 Impression: Primary Impression: COUGH Additional Impression: VIRAL SYNDROME Disposition: HOME / SELF CARE / HOMELESS Condition: Stable e-Prescriptions Ibuprofen Micronized (Ibuprofen) 800 Mg Tab 800 MG PO TID PRN, #40 TAB Prov: MELANIE MUNGUIA 03/04/25 Promethazine-Dm (Promethazine Dm 6.25-15 mg/5Ml) 1 Margaret Margaret 5 ML PO TID PRN, #240 ML Prov: MELANIE MUNGUIA 03/04/25 Discharged With: Self Critical Care Note Critical Care Time?: No Stability Stability form required: No Heart Score Heart Score: Heart Score Response (Comments) Value History N/A 0 EKG N/A 0 Age N/A 0 Risk Factors N/A 0 Troponin N/A 0 Total 0 MELANIE MUNGUIA Mar 04, 2025 21:24
[2025-03-04] MEDS: KETOROLAC TROMETH 30 MG/ML 1ML VIAL IM ONE (21:30)
[2025-03-04 21:49] LABS: COVID19 ANTIGEN SOFIA FIA NEGATIVE (NEGATIVE)
[2025-03-04 22:07] VITALS: BP 110/70; PULSE 89; RESP 16; TEMP 98.1; O2SAT 98
== END 2025-03-04 22:34 | disposition home or self-care (01) ==
LOC: ER 18:54
DX: B34.9 Viral infection, unspecified (principal); F41.9 Anxiety disorder, unspecified; F32.A Depression, unspecified; R53.1 Weakness; Z20.822 Contact with and (suspected) exposure to COVID-19; Z79.82 Long term (current) use of aspirin; Z88.3 Allergy status to other anti-infective agents; Z79.899 Other long term (current) drug therapy
CPT/HCPCS: 36415; 87426; 87804; 93005